=== PATIENT | female | born 1990 | race Caucasian/White ===

== ENCOUNTER 2023-10-27 11:33 | Emergency (ER) | payer OTHER, SELFPAY ==
[2023-10-27 11:46] VITALS: BP 134/94
[2023-10-27 12:08] LABS: % Basophils 0.3 % (0-2); % Eosinophils 0.2 % (0-6); % Immature Granulocytes 0.3 % (0-0.5); % Lymphocytes 15.8 % (20.5-51.1); % Neutrophils 79.4 % (42.2-75.2); Absolute Lymphocytes 2.1 10^3/uL (1.2-3.4); Absolute Monocytes 0.5 10^3/uL (0.1-0.6); Absolute Neutrophils 10.6 10^3/uL (1.4-6.5); Hematocrit 43.5 % (37.0-47.0); Hemoglobin 14.9 g/dL (12.0-16.0); Mean Corp Hgb Conc. 34.3 g/dL (33.0-37.0); Mean Corpuscular Hgb 30.2 pg (27.0-31.0); Mean Corpuscular Volume 88.2 fL (81.0-99.0); Mean Platelet Volume 9.6 fL (7.4-10.4); Nucleated Red Blood Cells % 0 %; Platelet Count 216 10^3/uL (130-400); Red Blood Cell Count 4.93 10^6/uL (4.20-5.40); Red Cell Dist. Width 12.4 % (11.5-14.5); White Blood Cell Count 13.3 10^3/uL (4.8-10.8)
[2023-10-27 12:20] LABS: ALT (SGPT) 16 U/L (0-35); AST (SGOT) 29 U/L (14-36); Albumin 4.4 g/dl (3.5-5.0); Alkaline Phosphatase 71 U/L (38-126); Blood Urea Nitrogen 14 mg/dl (7-17); Calcium 9.4 mg/dl (8.4-10.2); Carbon Dioxide 22 mmol/L (22-30); Chloride 106 mmol/L (98-107); Glucose 106 mg/dl (70-99); HCG, Serum Qualitative Screen Negative; Lipase 43 U/L (23-300); Potassium 4.1 mmol/L (3.5-5.1); Sodium 137 mmol/L (135-145); Total Bilirubin 0.6 mg/dl (0.2-1.3); Total Protein 7.7 g/dl (6.3-8.2); eGFR > 60.00
[2023-10-27 12:56] VITALS: BMI 39.2
--- NOTE | 2023-10-27 13:12 | ED.GENMED ---
History of Present Illness
General
Chief Complaint: Abdominal Pain
Time Seen by Provider: 10/27/23 12:50
History of Present Illness
History of Present Illness:
32-year-old female with history of IBS presents the emergency department for evaluation of intermittent lower abdominal pain and bloody stool beginning last night. She states she has had greater than 10 episodes of bloody bowel movements, at this
point she is passing primarily blood and no stool. She did have 1 syncopal episode this morning as a result of her symptoms. She has no pain at this time, states pain resolves after having a bowel movement. She is not on any blood thinners. Has
not had a colonoscopy greater than 10 years
Review of Systems
Review of Systems
Allergies reviewed?: Yes
All Other Systems: ROS reviewed and negative except as documented in HPI and ROS
Phy Exam
Physical Exam
Physical Exam:
GEN: Well appearing, NAD, WDWN
Eyes: PERRLA, EOMs intact, no scleral icterus
HENT: NCAT, oral mucosa moist, no JVD, no cervical adenopathy.
Lungs: CTAB, no wheezes, rales, rhonchi, normal chest wall excursion
Cardiac: RRR, no M/R/G, no peripheral edema. Radial pulses 2+ bilat
Abdomen: Soft, generally nontender, no rigidity
Neuro: AO x 3
MSK: No gross deformity or ecchymosis. No edema. No digital clubbing
Skin: No rashes, petechiae. Normal color, no pallor or jaundice.
Psych: Calm, cooperative, proper hygiene
Course
Orders/Labs/Results
Orders:
Orders
10/27/23 11:52
Electrocardiogram (*1) Urgent
Reason for Study: Syncope
EKG- Treatment ONCE
Test Result ONCE
10/27/23 11:58
C-Reactive Protein Urgent
Comment: ADD ON
Complete Blood Count/With Diff Urgent
Comprehensive Metabolic Panel Urgent
HCG, Serum Qualitative Screen Urgent
Lipase Urgent
10/27/23 13:07
Add On- LAB Urgent
Tests Added?: CRP
CT Angio Abd/Pelvis w/wo IV [CT Abd/pelvis Angio W/wo Iv] Urgent
Comment:
Reason For Exam: rectal hemorrhaging
10/27/23 14:34
Stool Culture Urgent
ASHUTOSH Source: Feces/Stool
Specimen Description:
Date Specimen was Collected: 10/27/23
Time Specimen was Collected: 14:32
Abnormal Lab Results
10/27/23
11:58
WBC 13.3 H 10^3/uL
(4.8-10.8)
Absolute Neuts (auto) 10.6 H 10^3/uL
(1.4-6.5)
Neutrophils % 79.4 H %
(42.2-75.2)
Lymphocytes % 15.8 L %
(20.5-51.1)
Glucose 106 H mg/dl
(70-99)
C-Reactive Protein 21.00 H mg/L
(0.0-10.00)
10/27/23 11:58
10/27/23 11:58
Vital Signs
Initial and Last Documented VS:
Initial Vital Signs
Temp Pulse Resp BP Pulse Ox
97.8 F 88 18 134/94 98
10/27/23 11:46 10/27/23 11:46 10/27/23 11:46 10/27/23 11:46 10/27/23 11:46
Last Documented Vital Signs
Temp Pulse Resp BP Pulse Ox
97.8 F 88 18 134/94 98
10/27/23 11:46 10/27/23 11:46 10/27/23 11:46 10/27/23 11:46 10/27/23 11:46
MDM/Problems Addressed
MDM/Problems Addressed:
Due to the volume of reported bloody stools a CT angiogram was obtained which showed no evidence for active hemorrhaging. She has no rectal pain concerning for anal fissure diverticular bleed however. Patient was referred to gastroenterology as an
outpatient through the, stool culture sent
Discharge, do not feel there is indication for antibiotics at this juncture
*Critical Care Note
Total Time (30-74mins, 75-104mins- exclusive of procedures): Not Applicable
ED Attending Note
-
Portions of this chart may have been created with voice recognition software.� Occasional wrong word or��sound alike� substitutions may have occurred due to the inherent limitations of voice recognition software.
Discharge Plan
Departure
Patient Disposition: Home (Routine Discharge)
Date of Disposition: 10/27/23
Time of Disposition: 14:24
Patient with high blood pressure during this ER visit?: No
Discharge Problem:
Acute lower gastrointestinal bleeding
Instructions: Bloody Stools, Adult ED
Prescriptions:
No Action
norgestimate-ethinyl estradiol [Joq-Kk-Rncfea] 0.18/0.215/0.25 mg-25 mcg tablet
1 tab PO DAILY@1200
cetirizine [Zyrtec] 10 mg Tablet
10 mg PO HS
ascorbic acid (vitamin C) [Vitamin C] 500 mg Tablet
500 mg PO DAILY
zinc sulfate 50 mg zinc (220 mg) Capsule
50 mg PO DAILY
cholecalciferol (vitamin D3) [Vitamin D3] 25 mcg (1,000 unit) Tablet
25 mcg PO DAILY
Referrals:
Qi Nava PA-C [Family Provider] -
Teodoro Juarez MD [Active] - Call in 1-3 days for appt
Activity Restrictions/Additional Instructions:
Return to the ER if symptoms worsen
Interventions
Interventions:
*Risk Screen - Suicide Last Done: 10/27/23 11:46
*General Assessment Last Done: 10/27/23 11:46
*Neglect/Abuse Screening Last Done: 10/27/23 11:46
ED- Fall Risk Assessment Last Done: 10/27/23 12:56
*Nursing Disposition Last Done: 10/27/23 14:42
XS-Wcsvhg-Qujiurhoct Assessment Last Done: 10/27/23 12:56
Discharge Date and Time
Discharge Date/Time: 10/27/23 14:42
Print Language: OCCITAN
== END 2023-10-27 14:42 | disposition home or self-care (01) ==
LOC: EMR 11:33
PROVIDERS: EMERGENCY PHYSICIAN Emergency Medicine; FAMILY PHYSICIAN Physician Assistant
DX: K92.2 Gastrointestinal hemorrhage, unspecified (principal); K58.9 Irritable bowel syndrome, unspecified
CPT/HCPCS: 99284; 74174; 80053; 83690; 84703; 85025; 86140; 87045; 87046; 87427; 93005; Q9967

== ENCOUNTER → 2024-01-10 06:22 | Day surgery (SDC) | payer OTHER, SELFPAY | LOC: GI 06:22 | PROVIDERS: ATTENDING PHYSICIAN Internal Medicine Gastroenterology | DX: R19.7 Diarrhea, unspecified (principal); K64.8 Other hemorrhoids | CPT/HCPCS: 45380; 88305 ==